=== PATIENT | female | born 1965 | race Caucasian/White ===

== ENCOUNTER 2019-04-01 09:51 | Day surgery (SDC) | payer OTHER ==
[~2019-04-01] VITALS: Ht 157.5 cm; Wt 91.2 kg
[2019-04-01 10:36] VITALS: BP 141/83
[2019-04-01 15:53] VITALS: BP 105/67
== END 2019-04-01 15:35 | disposition home or self-care (01) ==
LOC: DS 09:51 → OR 12:00 → DS 15:35
DX: D23.5 Other benign neoplasm of skin of trunk (principal); M19.90 Unspecified osteoarthritis, unspecified site; J45.909 Unspecified asthma, uncomplicated; E78.00 Pure hypercholesterolemia, unspecified; Z88.8 Allergy status to other drugs, medicaments and biological substances; Z91.041 Radiographic dye allergy status; Z79.899 Other long term (current) drug therapy; Z98.891 History of uterine scar from previous surgery; Z98.51 Tubal ligation status; Z98.890 Other specified postprocedural states
CPT/HCPCS: J0690; J1170; J2405; J2704; J3010; J3490; J7120